=== PATIENT | female | born 1950 | race Two or more races ===

== ENCOUNTER 2018-03-26 09:28 | Outpatient (CLI) | payer OTHER ==
[~2018-03-26 09:28] MED LIST: RECTICARE30 GM TP; SYNTHROID112 MCG PO; TRAM1TAB98 PO
== END 2018-03-26 09:31 | disposition home or self-care (01) ==
LOC: RAD 501 09:28
DX: H25.011 Cortical age-related cataract, right eye (principal); Z98.41 Cataract extraction status, right eye

== ENCOUNTER 2020-01-25 05:55 | Day surgery (SDC) | payer OTHER | END 2020-01-25 10:05 | disposition home or self-care (01) | LOC: AMB-ENDOS 05:55 | DX: D12.8 Benign neoplasm of rectum (principal); K64.8 Other hemorrhoids ==

== ENCOUNTER 2020-12-21 08:46 | Outpatient (CLI) | payer OTHER | END 2020-12-21 09:17 | disposition home or self-care (01) | LOC: RAD 08:46 | PROVIDERS: ATTEND Family Medicine | DX: M23.307 Other meniscus derangements, unspecified meniscus, left knee (principal); M17.12 Unilateral primary osteoarthritis, left knee | CPT/HCPCS: 73721 ==

== ENCOUNTER 2021-01-23 09:19 | Outpatient (CLI) | payer OTHER | END 2021-01-23 09:23 | disposition home or self-care (01) | LOC: LAB 09:19 | PROVIDERS: ATTEND Orthopaedic Surgery | DX: E56.1 Deficiency of vitamin K (principal) ==

== ENCOUNTER 2022-08-28 10:31 | Outpatient (CLI) | payer OTHER ==
[~2022-08-28 10:31] MED LIST changes: +LIDOCAINE PAIN1 EACH TOP
== END 2022-08-28 13:36 | disposition home or self-care (01) ==
LOC: RAD 10:31
PROVIDERS: ATTEND Family Medicine
DX: S83.231A Complex tear of medial meniscus, current injury, right knee, initial encounter (principal); M25.551 Pain in right hip; M25.561 Pain in right knee
CPT/HCPCS: 73721

== ENCOUNTER 2023-01-01 07:05 | Outpatient (CLI) | payer OTHER ==
[~2023-01-01 07:05] MED LIST changes: +METHOCARBAMOL500 MG PO; +METHOCARBAMOL750 MG PO
== END 2023-01-01 07:11 | disposition home or self-care (01) ==
LOC: NUCLEAR 07:05
PROVIDERS: ATTEND Internal Medicine Endocrinology, Diabetes & Metabolism
DX: C73 Malignant neoplasm of thyroid gland (principal); C50.919 Malignant neoplasm of unspecified site of unspecified female breast; C79.51 Secondary malignant neoplasm of bone; M81.0 Age-related osteoporosis without current pathological fracture
CPT/HCPCS: 78315; A9503